=== PATIENT | female | born 1970 | race Caucasian/White ===

== ENCOUNTER 2016-07-08 11:40 | Emergency (ER) | payer MEDICAID ==
[2016-07-08] MEDS ORDERED: NS 1,000 ML IV ONE (11:49)
[2016-07-08] MEDS ORDERED: ONDANSETRON 4 MG/2 ML VIAL IVP ONE (11:49)
[2016-07-08 11:53] LABS: % IMMATURE GRANULYOCYTES 0.6 % (0.0-1.1); ABSOLUTE IMMATURE GRANULOCYTES 0.05 10^3/uL (0.00-0.10); ADD DIFF? NO; ADD MORPH? NO; ADD SCAN? NO; ATYPICAL LYMPHOCYTE FLAG 0 (0-99); FRAGMENT RBC FLAG 0 (0-99); HEMATOCRIT 42.8 % (38.0-47.0); HEMOGLOBIN 14.7 g/dL (12.6-16.3); LEFT SHIFT FLG 10 (0-99); LIPEMIA HEMOLYSIS FLAG 90 (0-99); MEAN CELL HEMOGLOBIN 30.4 pg (27.9-34.1); MEAN CELL HEMOGLOBIN CONCENTR. 34.3 g/dL (32.4-36.7); MEAN CELL VOLUME 88.4 fL (81.5-99.8); MEAN PLATELET VOLUME 9.6 fL (8.7-11.7); PLATELET CLUMPS FLAG 20 (0-99); PLATELET COUNT 313 10^3/uL (150-400); RED BLOOD CELL COUNT 4.84 10^6/uL (4.18-5.33); RED CELL DISTRIBUTION WIDTH 12.7 % (11.5-15.2)
--- NOTE | 2016-07-08 12:12 | EDPHY ---
H & P Stated Complaint: dehydration secondary to ETOH mannie, N/V/D HPI/ROS: Chief complaint: Alcohol use, nausea, vomiting and diarrhea History of present illness: This is a 45-year-old female with a history of alcoholism who presents to the emergency department feeling unwell describing nausea, vomiting and diarrhea. Patient reports she has been sober for the last 6 months. Yesterday she started drinking again has been binge drinking since then. Her last drink was earlier today. She developed associated nausea, vomiting and diarrhea described as nonbloody. She has had some abdominal discomfort. She feels dehydrated. She denies other associated signs or symptoms fevers no other pain, no history of trauma. Review of systems: A 10 point review of systems was obtained and other than described above was negative - Personal History LMP (Females 10-55): Now Current Tetanus Diphtheria and Acellular Pertussis (TDAP): Unsure - Medical/Surgical History Hx Asthma: No Hx Chronic Respiratory Disease: No Hx Diabetes: No Hx Cardiac Disease: No Hx Renal Disease: No Hx Cirrhosis: No Hx Alcoholism: Yes Hx HIV/AIDS: No Hx Splenectomy or Spleen Trauma: No Other PMH: ENDOMETRIOSIS, breast CA/ETOH, bipolar - Social History Smoking Status: Current every day smoker - Physical Exam Exam: General Appearance: Alert, nontoxic. Eyes: Pupils equal and round no pallor or injection. ENT, Mouth: Mucous membranes moist. Respiratory: There are no retractions, lungs are clear to auscultation. Cardiovascular: Regular rate and rhythm. Gastrointestinal: Abdomen is soft and nontender, no masses, bowel sounds normal. Neurological: Alert and oriented. Strength and sensation intact and symmetrical. Skin: Warm and dry, no rashes. Musculoskeletal: Neck is supple nontender. Extremities are symmetrical, full range of motion. Psychiatric: Patient is oriented X 3, there is no agitation. Constitutional: Initial Vital Signs Temperature (C) 36.8 C 07/08/16 11:45 Heart Rate 71 07/08/16 11:45 Respiratory Rate 16 07/08/16 11:45 Blood Pressure 107/56 L 07/08/16 11:45 O2 Sat (%) 96 07/08/16 11:45 O2 Delivery Mode Room Air Allergies/Adverse Reactions: No Known Allergies Allergy (Verified 10/31/15 11:02) Home Medications: Medication Instructions Recorded LaMICtal 03/17/15 traMADol 07/08/16 Medical Decision Making ED Course/Re-evaluation: Patient is seen under the supervision of my secondary supervising physician Dr. Bernabe Fulton. Patient presents to the emergency department reporting she has been drinking for the last day now with nausea, vomiting and diarrhea with associated abdominal discomfort. On presentation patient is nontoxic. Vital signs are stable. Physical exam is unremarkable, she is alert, appropriately interactive with me and has a nonfocal neurologic exam. Baseline blood studies are unremarkable. She is IV hydrated and treated with Zofran. She states she is feeling much better. She is clinically sober. She is discharged. Patient is asked to follow up with a primary care doctor for recheck. Return precautions are given. Patient voiced understanding and agreement with plan. Differential Diagnosis: Included but not limited to alcohol intoxication, alcohol withdrawal, gastritis , biliary tract disease, pancreatitis, colitis, an associated complications - Data Points Laboratory Results: Laboratory Results 07/08/16 11:45 07/08/16 11:45 07/08/16 07/08/16 07/08/16 11:45 11:45 11:45 WBC 8.07 10^3/uL 10^3/uL (3.80-9.50) RBC 4.84 10^6/uL 10^6/uL (4.18-5.33) Hgb 14.7 g/dL g/dL (12.6-16.3) Hct 42.8 % % (38.0-47.0) MCV 88.4 fL fL (81.5-99.8) MCH 30.4 pg pg (27.9-34.1) MCHC 34.3 g/dL g/dL (32.4-36.7) RDW 12.7 % % (11.5-15.2) Plt Count 313 10^3/uL 10^3/uL (150-400) MPV 9.6 fL fL (8.7-11.7) Neut % (Auto) 82.0 % H % (39.3-74.2) Lymph % (Auto) 14.1 % L % (15.0-45.0) [place] % (Auto) 2.5 % L % (4.5-13.0) Eos % (Auto) 0.1 % L % (0.6-7.6) Baso % (Auto) 0.7 % % (0.3-1.7) Nucleat RBC Rel Count 0.0 % % (0.0-0.2) Absolute Neuts (auto) 6.61 10^3/uL H 10^3/uL (1.70-6.50) Absolute Lymphs (auto) 1.14 10^3/uL 10^3/uL (1.00-3.00) Absolute Monos (auto) 0.20 10^3/uL L 10^3/uL (0.30-0.80) Absolute Eos (auto) 0.01 10^3/uL L 10^3/uL (0.03-0.40) Absolute Basos (auto) 0.06 10^3/uL 10^3/uL (0.02-0.10) Absolute Nucleated RBC 0.00 10^3/uL 10^3/uL (0-0.01) Immature Gran % 0.6 % % (0.0-1.1) Immature Gran # 0.05 10^3/uL 10^3/uL (0.00-0.10) Sodium 141 mEq/L mEq/L (134-144) Potassium 3.8 mEq/L mEq/L (3.5-5.2) Chloride 102 mEq/L mEq/L (97-110) Carbon Dioxide 20 mEq/l L mEq/l (22-31) Anion Gap 19 mEq/L H mEq/L (8-16) BUN 18 mg/dL mg/dL (7-23) Creatinine 0.8 mg/dL mg/dL (0.6-1.0) Estimated GFR > 60 Glucose 89 mg/dL mg/dL (70-100) Calcium 9.5 mg/dL mg/dL (8.5-10.4) Total Bilirubin 0.9 mg/dL mg/dL (0.1-1.4) Conjugated Bilirubin 0.4 mg/dL mg/dL (0.0-0.5) Unconjugated Bilirubin 0.5 mg/dL mg/dL (0.0-1.1) AST 41 IU/L IU/L (14-46) ALT 37 IU/L IU/L (9-52) Alkaline Phosphatase 60 IU/L IU/L (38-126) Total Protein 7.3 g/dL g/dL (6.3-8.2) Albumin 5.2 g/dL H g/dL (3.5-5.0) Lipase 64.0 IU/L IU/L (23-300) Beta HCG, Qual NEGATIVE Medications Given: Discontinued Medications Sodium Chloride (Ns) 1,000 mls @ 0 mls/hr IV ONCE ONE PRN Reason: Wide Open Stop: 07/08/16 11:50 Last Admin: 07/08/16 11:53 Dose: 1,000 mls Ondansetron HCl (Zofran) 4 mg IVP EDNOW ONE Stop: 07/08/16 11:50 Last Admin: 07/08/16 11:53 Dose: 4 mg Departure - Departure Disposition: Home, Routine, Self-Care Clinical Impression: Vomiting and diarrhea Alcohol dependence Qualifiers: Substance use status: uncomplicated Qualified Code(s): F10.20 - Alcohol dependence, uncomplicated Condition: Good Instructions: Alcohol Intoxication (ED) Additional Instructions: Follow-up with a primary care doctor for recheck If symptoms worsen or new symptoms develop return to the emergency room for recheck Referrals: Patient,NotPresent [Unknown] - As per Instructions [facility],. [Clinic] - As per Instructions
[2016-07-08 12:29] LABS: ALANINE AMINOTRANSFERASE 37 IU/L (9-52); ALBUMIN 5.2 g/dL (3.5-5.0); ALKALINE PHOSPHATASE 60 IU/L (38-126); ANION GAP 19 mEq/L (8-16); ASPARTATE AMINOTRANSFERASE 41 IU/L (14-46); BILIRUBIN,TOTAL 0.9 mg/dL (0.1-1.4); BILIRUBIN-CONJUGATED 0.4 mg/dL (0.0-0.5); BILIRUBIN-UNCONJUGATED 0.5 mg/dL (0.0-1.1); CALCIUM 9.5 mg/dL (8.5-10.4); CARBON DIOXIDE 20 mEq/l (22-31); CHLORIDE 102 mEq/L (97-110); CREATININE 0.8 mg/dL (0.6-1.0); GLOMERULAR FILTRATION RATE > 60; GLUCOSE 89 mg/dL (70-100); POTASSIUM 3.8 mEq/L (3.5-5.2); SODIUM 141 mEq/L (134-144); TOTAL PROTEIN 7.3 g/dL (6.3-8.2)
[2016-07-08 13:02] VITALS: BP 104/60; PULSE 79; RESP 15; TEMP 98.8; O2SAT 95
== END 2016-07-08 13:01 | disposition home or self-care (01) ==
LOC: EDUNIT#
DX: F10.20 Alcohol dependence, uncomplicated (principal); R11.10 Vomiting, unspecified; R19.7 Diarrhea, unspecified; F17.200 Nicotine dependence, unspecified, uncomplicated; Z85.3 Personal history of malignant neoplasm of breast
CPT/HCPCS: 96374; J2405

== ENCOUNTER 2016-07-16 18:28 | Emergency (ER) | payer MEDICAID ==
[2016-07-16 18:35] VITALS: RESP 16; TEMP 97.9
--- NOTE | 2016-07-16 18:44 | EDPHY ---
H & P Stated Complaint: DRINKING FOR ONE WEEK, ALCOHOLIC Time Seen by Provider: 07/16/16 18:37 HPI/ROS: CHIEF COMPLAINT: Requesting assistance from alcohol usage HISTORY OF PRESENT ILLNESS: 45-year-old female arrives via private vehicle, brought in by 3 friends who are in a sobriety program. History obtained primarily from friends as patient is altered. They state that the patient has been drinking heavily for the past 8 days and contacted 1 of them earlier requesting help from alcohol. No suicidal or homicidal ideation. REVIEW OF SYSTEMS: A ten point review of systems was performed and is negative with the exception of the items mentioned in the HPI PAST MEDICAL & SURGICAL HISTORY: Bipolar disorder. Alcoholism. SOCIAL HISTORY: last drink of alcohol earlier today FAMILY HISTORY: No pertinent family history PHYSICAL EXAM (Prior to examination, patient consented to physical exam, hands were washed and my usual and customary physical exam procedures followed) 1) GENERAL: thin, slurring speech 2) HEAD: Normocephalic, atraumatic 3) HEENT: Pupils equal, round, reactive to light bilaterally. Sclera anicteric. 4) NECK: Full range of motion, no meningeal signs. 5) LUNGS: Clear auscultation bilaterally, no wheezes, no rhonchi, no retractions. 6) HEART: Regular rate and rhythm, no murmur, no heave, no gallop. 7) ABDOMEN: No guarding, no rebound, no focal tenderness, 8) MUSCULOSKELETAL: . No peripheral edema or discoloration.] 9) BACK: no visual or palpable abnormality.] 10) SKIN: No rash, no petechiae. 11) Psychiatric: Patient is oriented X 3, there is no agitation. DIFFERENTIAL DIAGNOSIS: in no particular include but limited to acute alcohol intoxication, hepatic encephalopathy, polysubstance abuse - Personal History LMP (Females 10-55): 15-21 Days Ago Current Tetanus Diphtheria and Acellular Pertussis (TDAP): Unsure - Medical/Surgical History Hx Asthma: No Hx Chronic Respiratory Disease: No Hx Diabetes: No Hx Cardiac Disease: No Hx Renal Disease: No Hx Cirrhosis: No Hx Alcoholism: Yes Hx HIV/AIDS: No Hx Splenectomy or Spleen Trauma: No Other PMH: ENDOMETRIOSIS, breast CA/ETOH, bipolar - Social History Smoking Status: Current every day smoker Constitutional: Initial Vital Signs Temperature (C) 36.6 C 07/16/16 18:30 Heart Rate 102 H 07/16/16 18:30 Respiratory Rate 16 07/16/16 18:30 Blood Pressure 117/87 H 07/16/16 18:30 O2 Sat (%) 91 L 07/16/16 18:30 O2 Delivery Mode Room Air O2 (L/minute) 2 Allergies/Adverse Reactions: No Known Allergies Allergy (Verified 07/16/16 18:35) Home Medications: Medication Instructions Recorded Not Taking Meds 07/16/16 Medical Decision Making ED Course/Re-evaluation: Patient re-evaluated with serial exams. She is progressively more sober. She is ambulating without assistance.Her alcohol level of 368 was returned at 8:49 p.m. due to prior issues with initial blood sample. Doubt hepatic encephalopathy. She denies suicidal or homicidal ideation. She is here with her sober friends. We [facility] which the patient Initially is agreeable with. Her friend offered to take her to the [facility]. After period of time in the emergency department she became progressively more sober and is clinically sober. Offered to send her to the [facility] however she adamantly declines this. Informed the patient of the risks of acute alcohol withdrawal including but not limited to seizure, , permanent disability. She continues to decline stating that she will go home and " manage this myself". she took a taxi home. She is discharged with out Librium or benzodiazepine. - Data Points Laboratory Results: Laboratory Results 07/16/16 19:05 07/16/16 20:00 07/16/16 07/16/16 07/16/16 20:00 20:00 19:05 WBC RBC Hgb Hct MCV MCH MCHC RDW Plt Count MPV Neut % (Auto) Lymph % (Auto) [place] % (Auto) Eos % (Auto) Baso % (Auto) Nucleat RBC Rel Count Absolute Neuts (auto) Absolute Lymphs (auto) Absolute Monos (auto) Absolute Eos (auto) Absolute Basos (auto) Absolute Nucleated RBC Immature Gran % Immature Gran # Sodium 139 mEq/L mEq/L (134-144) Potassium 4.6 mEq/L mEq/L (3.5-5.2) Chloride 99 mEq/L mEq/L (97-110) Carbon Dioxide 25 mEq/l mEq/l (22-31) Anion Gap 15 mEq/L mEq/L (8-16) BUN 10 mg/dL mg/dL (7-23) Creatinine 0.6 mg/dL mg/dL (0.6-1.0) Estimated GFR > 60 Glucose 81 mg/dL mg/dL (70-100) Calcium 8.0 mg/dL L mg/dL (8.5-10.4) Total Bilirubin Conjugated Bilirubin Unconjugated Bilirubin AST ALT Alkaline Phosphatase Ammonia < 9.0 uMOL/L L uMOL/L (9.0-30.0) Total Protein Albumin Ethyl Alcohol 368 mg/dL H mg/dL (0-10) 07/16/16 07/16/16 19:05 19:05 WBC 6.88 10^3/uL 10^3/uL (3.80-9.50) RBC 5.78 10^6/uL H 10^6/uL (4.18-5.33) Hgb 17.6 g/dL H g/dL (12.6-16.3) Hct 51.2 % H % (38.0-47.0) MCV 88.6 fL fL (81.5-99.8) MCH 30.4 pg pg (27.9-34.1) MCHC 34.4 g/dL g/dL (32.4-36.7) RDW 13.0 % % (11.5-15.2) Plt Count 312 10^3/uL 10^3/uL (150-400) MPV 9.0 fL fL (8.7-11.7) Neut % (Auto) 66.2 % % (39.3-74.2) Lymph % (Auto) 29.7 % % (15.0-45.0) [place] % (Auto) 2.6 % L % (4.5-13.0) Eos % (Auto) 0.4 % L % (0.6-7.6) Baso % (Auto) 0.7 % % (0.3-1.7) Nucleat RBC Rel Count 0.0 % % (0.0-0.2) Absolute Neuts (auto) 4.55 10^3/uL 10^3/uL (1.70-6.50) Absolute Lymphs (auto) 2.04 10^3/uL 10^3/uL (1.00-3.00) Absolute Monos (auto) 0.18 10^3/uL L 10^3/uL (0.30-0.80) Absolute Eos (auto) 0.03 10^3/uL 10^3/uL (0.03-0.40) Absolute Basos (auto) 0.05 10^3/uL 10^3/uL (0.02-0.10) Absolute Nucleated RBC 0.00 10^3/uL 10^3/uL (0-0.01) Immature Gran % 0.4 % % (0.0-1.1) Immature Gran # 0.03 10^3/uL 10^3/uL (0.00-0.10) Sodium REJ Potassium Not Reported Chloride Not Reported Carbon Dioxide Not Reported Anion Gap Not Reported BUN Not Reported Creatinine Not Reported Estimated GFR Not Reported Glucose Not Reported Calcium Not Reported Total Bilirubin Not Reported Conjugated Bilirubin Not Reported Unconjugated Bilirubin Not Reported AST Not Reported ALT Not Reported Alkaline Phosphatase Not Reported Ammonia Total Protein Not Reported Albumin Not Reported Ethyl Alcohol REJ Medications Given: Discontinued Medications Chlordiazepoxide (Librium 25 Mg Prepack#6) 1 btl TAKEHOME EDNOW ONE Stop: 07/16/16 20:51 Last Admin: 07/16/16 23:58 Dose: Not Given Sodium Chloride (Ns) 1,000 mls @ 0 mls/hr IV ONCE ONE PRN Reason: Wide Open Stop: 07/16/16 21:14 Last Admin: 07/16/16 21:14 Dose: 1,000 mls Lorazepam (Ativan Injection) 1 mg IVP EDNOW ONE Stop: 07/16/16 22:05 Last Admin: 07/16/16 22:10 Dose: 1 mg Ondansetron HCl (Zofran) 4 mg IVP EDNOW ONE Stop: 07/16/16 19:50 Last Admin: 07/16/16 19:40 Dose: 4 mg Ondansetron HCl (Zofran) 4 mg IVP EDNOW ONE Stop: 07/16/16 22:05 Last Admin: 07/16/16 22:10 Dose: 4 mg Departure - Departure Disposition: Home, Routine, Self-Care Clinical Impression: Acute alcohol intoxication Qualifiers: Complication of substance-induced condition: uncomplicated Qualified Code(s): F10.120 - Alcohol abuse with intoxication, uncomplicated Condition: Good Instructions: Alcohol Intoxication (ED) Referrals: [facility] [Outside] - 1 day without fail
[2016-07-16 19:19] LABS: % IMMATURE GRANULYOCYTES 0.4 % (0.0-1.1); ABSOLUTE IMMATURE GRANULOCYTES 0.03 10^3/uL (0.00-0.10); ADD DIFF? NO; ADD MORPH? NO; ADD SCAN? NO; ATYPICAL LYMPHOCYTE FLAG 0 (0-99); FRAGMENT RBC FLAG 0 (0-99); HEMATOCRIT 51.2 % (38.0-47.0); HEMOGLOBIN 17.6 g/dL (12.6-16.3); LEFT SHIFT FLG 0 (0-99); LIPEMIA HEMOLYSIS FLAG 90 (0-99); MEAN CELL HEMOGLOBIN 30.4 pg (27.9-34.1); MEAN CELL HEMOGLOBIN CONCENTR. 34.4 g/dL (32.4-36.7); MEAN CELL VOLUME 88.6 fL (81.5-99.8); PLATELET CLUMPS FLAG 10 (0-99); PLATELET COUNT 312 10^3/uL (150-400); RED BLOOD CELL COUNT 5.78 10^6/uL (4.18-5.33)
[2016-07-16] MEDS ORDERED: ONDANSETRON 4 MG/2 ML VIAL ONE (19:36)
[2016-07-16] MEDS ORDERED: ONDANSETRON 4 MG/2 ML VIAL IVP ONE ×2 (19:49→22:04)
[2016-07-16 20:12] LABS: ANION GAP 15 mEq/L (8-16); CARBON DIOXIDE 25 mEq/l (22-31); CHLORIDE 99 mEq/L (97-110); CREATININE 0.6 mg/dL (0.6-1.0); GLOMERULAR FILTRATION RATE > 60; GLUCOSE 81 mg/dL (70-100); POTASSIUM 4.6 mEq/L (3.5-5.2); SODIUM 139 mEq/L (134-144)
[2016-07-16 20:45] LABS: ETHANOL SERUM 368 mg/dL (0-10)
[2016-07-16] MEDS ORDERED: CHLORDIAZEPOXIDE 25MG PREPK#6 BTL TAKEHOME ONE (20:50)
[2016-07-16] MEDS ORDERED: NS 1,000 ML IV ONE (21:13)
[2016-07-16] MEDS ORDERED: LORazepam 2 MG/ML INJ IVP ONE (22:04)
[2016-07-17] VITALS: BP 104/61; PULSE 87; O2SAT 94
== END 2016-07-16 23:59 | disposition home or self-care (01) ==
DX: F10.120 Alcohol abuse with intoxication, uncomplicated (principal); F17.200 Nicotine dependence, unspecified, uncomplicated; Z85.3 Personal history of malignant neoplasm of breast
CPT/HCPCS: G0480; J2060; J2405

== ENCOUNTER 2016-09-07 19:38 | Emergency (ER) | payer MEDICAID ==
[2016-09-07 19:54] VITALS: O2SAT 97
[2016-09-07] MEDS ORDERED: chlordiazePOXIDE 25 MG CAP PO ONE (21:26)
[2016-09-07 21:48] LABS: % IMMATURE GRANULYOCYTES 0.2 % (0.0-1.1); ABSOLUTE IMMATURE GRANULOCYTES 0.01 10^3/uL (0.00-0.10); ADD DIFF? NO; ADD MORPH? NO; ADD SCAN? NO; ATYPICAL LYMPHOCYTE FLAG 0 (0-99); FRAGMENT RBC FLAG 0 (0-99); HEMATOCRIT 37.5 % (38.0-47.0); LEFT SHIFT FLG 0 (0-99); LIPEMIA HEMOLYSIS FLAG 90 (0-99); MEAN CELL HEMOGLOBIN 31.2 pg (27.9-34.1); MEAN CELL HEMOGLOBIN CONCENTR. 34.7 g/dL (32.4-36.7); MEAN CELL VOLUME 89.9 fL (81.5-99.8); MEAN PLATELET VOLUME 9.1 fL (8.7-11.7); PLATELET CLUMPS FLAG 0 (0-99); PLATELET COUNT 192 10^3/uL (150-400); RED BLOOD CELL COUNT 4.17 10^6/uL (4.18-5.33); RED CELL DISTRIBUTION WIDTH 12.9 % (11.5-15.2)
[2016-09-07 22:01] LABS: ALANINE AMINOTRANSFERASE 85 IU/L (9-52); ALBUMIN 4.3 g/dL (3.5-5.0); ALKALINE PHOSPHATASE 57 IU/L (38-126); ANION GAP 13 mEq/L (8-16); ASPARTATE AMINOTRANSFERASE 52 IU/L (14-46); BILIRUBIN,TOTAL 0.6 mg/dL (0.1-1.4); BILIRUBIN-CONJUGATED 0.3 mg/dL (0.0-0.5); BILIRUBIN-UNCONJUGATED 0.3 mg/dL (0.0-1.1); CALCIUM 9.9 mg/dL (8.5-10.4); CARBON DIOXIDE 29 mEq/l (22-31); CHLORIDE 96 mEq/L (97-110); CREATININE 0.6 mg/dL (0.6-1.0); ETHANOL SERUM < 10 mg/dL (0-10); GLOMERULAR FILTRATION RATE > 60; GLUCOSE 85 mg/dL (70-100); POTASSIUM 3.9 mEq/L (3.5-5.2); SODIUM 138 mEq/L (134-144); TOTAL PROTEIN 6.8 g/dL (6.3-8.2)
--- NOTE | 2016-09-07 22:06 | EDPHY ---
H & P Stated Complaint: says she's an alcoholic,recent sobriety, started drinking 7.8- cant stop - Medical/Surgical History Hx Asthma: No Hx Chronic Respiratory Disease: No Hx Diabetes: No Hx Cardiac Disease: No Hx Renal Disease: No Hx Cirrhosis: No Hx Alcoholism: Yes Hx HIV/AIDS: No Hx Splenectomy or Spleen Trauma: No Other PMH: ENDOMETRIOSIS, breast CA/ETOH, bipolar, L breast lumpectomy, endometrial surg - Social History Smoking Status: Current every day smoker Time Seen by Provider: 09/07/16 21:17 HPI/ROS: Chief complaint: Alcohol withdrawal History of present illness: This is a 45-year-old female who presents to the emergency department for alcohol withdrawal. Patient reports a history of alcohol abuse. She reports she has been drinking heavily for the last week. Her last drink was a few hours prior to arrival. She states she is feeling unwell. She would like treatment for her withdrawal. She would like to get back into alcoholic anonymous. She reports she is feeling unwell describing malaise as well as nausea. Review of systems: A 10 point review of systems was obtained and other than described above was negative (Holden Reno) - Physical Exam Exam: General Appearance: Alert, nontoxic. Eyes: Pupils equal and round no pallor or injection. ENT, Mouth: Mucous membranes moist. Respiratory: There are no retractions, lungs are clear to auscultation. Cardiovascular: Regular rate and rhythm. Gastrointestinal: Abdomen is soft and nontender, no masses, bowel sounds normal. Neurological: Alert and oriented x4. Cranial nerves 2-12 grossly intact. Strength and sensation intact and symmetrical. No meningismus. No tremulousness. Skin: Warm and dry, no rashes. Musculoskeletal: Neck is supple nontender. Extremities are symmetrical, full range of motion. Psychiatric: Patient is oriented X 3, there is no agitation. (Holden Reno) Constitutional: Initial Vital Signs Temperature (C) 37 C 09/07/16 19:45 Heart Rate 96 09/07/16 19:45 Respiratory Rate 18 09/07/16 19:45 Blood Pressure 110/79 09/07/16 19:45 O2 Sat (%) 97 09/07/16 19:45 O2 Delivery Mode Room Air Allergies/Adverse Reactions: No Known Allergies Allergy (Verified 09/07/16 19:50) Home Medications: Medication Instructions Recorded Vivitrol 09/07/16 traZODone 09/07/16 Medical Decision Making ED Course/Re-evaluation: Patient is seen under the supervision of my secondary supervising physician Dr. Maria Elena Toribio. Patient presents to the emergency department concerned she is going through alcohol withdrawal. On presentation she is nontoxic. Vital signs are stable. Physical exam is benign. Blood studies largely unremarkable except for slight elevation of LFTs likely from recent alcohol use. Alcohol level here is 0. She has been IV hydrated and given a dose of Librium. I do not appreciate evidence of severe withdrawal. She has been seen previously for alcohol related issues. I do believe she is appropriate for outpatient management. She is discharged home. Home care is discussed. I have encouraged her to seek therapy for her alcoholism. Return precautions are given. (Holden Reno) The patient was evaluated and managed by the physician ophthalmic medical assistant. I have reviewed this chart and I agree with the findings and plan of care as documented , as indicated by my signature. I am the secondary supervising physician. ( Maria Elena Toribio) Differential Diagnosis: Included but not limited to alcohol intoxication, alcohol withdrawal, substance abuse (Holden Reno) - Data Points Laboratory Results: Laboratory Results 09/07/16 21:40 09/07/16 21:40 Medications Given: Discontinued Medications Chlordiazepoxide HCl (Librium) 25 mg PO EDNOW ONE Stop: 09/07/16 21:27 Last Admin: 09/07/16 21:43 Dose: 25 mg Departure - Departure Disposition: Home, Routine, Self-Care Clinical Impression: Alcohol withdrawal Condition: Good Instructions: Alcohol Withdrawal (ED) Additional Instructions: Follow-up with a primary care doctor for recheck If symptoms worsen or new symptoms develop return to the emergency room for recheck Referrals: Lisa Scott PA [Primary Care Provider] - As per Instructions
[2016-09-08 00:45] VITALS: BP 121/71; PULSE 63; RESP 16; TEMP 98.1
== END 2016-09-07 22:29 | disposition home or self-care (01) ==
DX: F10.230 Alcohol dependence with withdrawal, uncomplicated (principal); F17.200 Nicotine dependence, unspecified, uncomplicated; Z85.3 Personal history of malignant neoplasm of breast
CPT/HCPCS: G0480

== ENCOUNTER 2018-03-07 18:05 | Emergency (ER) | payer MEDICAID ==
[2018-03-07] MEDS ORDERED: HALOPERIDOL LACT 5 MG/ML INJ IM ONE ×2 (18:10→18:11)
[2018-03-07] MEDS ORDERED: LORazepam 2 MG/ML INJ IM ONE ×2 (18:10)
[2018-03-07] MEDS ORDERED: HALOPERIDOL LACT 5 MG/ML INJ ONE (18:11)
--- NOTE | 2018-03-07 18:13 | EDPHY ---
H & P Source: RN/MD, EMS, Other Exam Limitations: Clinical condition - Medical/Surgical History Hx Asthma: No Hx Chronic Respiratory Disease: No Hx Diabetes: No Hx Cardiac Disease: No Hx Renal Disease: No Hx Cirrhosis: No Hx Alcoholism: Yes Hx HIV/AIDS: No Hx Splenectomy or Spleen Trauma: No Other PMH: ENDOMETRIOSIS, breast CA/ETOH, bipolar, L breast lumpectomy, endometrial surg - Social History Smoking Status: Current every day smoker Time Seen by Provider: 03/07/18 18:11 HPI/ROS: HPI: This is a 47-year-old female who presents with Chief Complaint: Alcohol intoxication Location: psych Quality: Alcohol intoxication Duration: Unknown Signs and Symptoms: Limited as patient is intoxicated and uncooperative Timing: Acute Severity: Severe Context: Patient presents via EMS as they were called by a bystander who found the patient sleeping on the sidewalk with her dog nearby. Patient was intoxicated. Upon arrival, patient began to yell and become combative with EMS. They are able to redirect her with verbal communication in she went into the ambulance. Upon arrival to the ER, patient began yelling and screaming and trying to escape. Modifying Factors: None Comment: ROS: Limited due to intoxication MEDICAL/SURGICAL/SOCIAL HISTORY: Medical/surgical history: ENDOMETRIOSIS, breast CA/ETOH, bipolar, L breast lumpectomy, endometrial surg Social history: Alcohol use. Family history noncontributory. CONSTITUTIONAL: Belligerent, yelling and screaming, swinging at staff, intoxicated middle-aged female, awake and alert, no obvious distress HEENT: Atraumatic and normocephalic, PERRL, EOMI. Nares patent; no rhinorrhea; no nasal mucosal edema. Tympanic membranes clear. Oropharynx clear, no exudate and moist pink mucosa. Airway patent. No lymphadenopathy. No meningismus. Cardiovascular: Normal S1/S2, tachycardia, regular rhythm, without murmur rub or gallop. PULMONARY/CHEST: Symmetrical and nontender. Clear to auscultation bilaterally. Good air movement. No accessory muscle usage. ABDOMEN: Soft, nondistended, nontender, no rebound, no guarding, no peritoneal signs, no masses or organomegaly. No CVAT. EXTREMITIES: 2/2 pulses, strength 5/5, no deformities, no clubbing, no cyanosis or edema. NEUROLOGICAL: no focal neuro deficits. GCS 15. SKIN: Warm and dry, no erythema. no rash. Good capillary refill. (Scarlett López) Constitutional: Initial Vital Signs Temperature (C) 36.6 C 03/07/18 18:35 Heart Rate 100 03/07/18 18:35 Respiratory Rate 18 03/07/18 18:35 Blood Pressure 103/74 03/07/18 18:35 O2 Sat (%) 96 03/07/18 18:35 O2 Delivery Mode Room Air O2 (L/minute) 1 Allergies/Adverse Reactions: No Known Allergies Allergy (Verified 03/07/18 18:37) Home Medications: Medication Instructions Recorded Vivitrol 09/07/16 traZODone 09/07/16 Medical Decision Making ED Course/Re-evaluation: 1814: Placed on [facility] detainer. Patient is currently intoxicated and uncooperative with concern for patient safety and staff safety. IM Haldol 5 mg , IM Ativan 2 mg, and IM Benadryl 25 mg given. 1925: [id number]: Notified by RN that patient is starting to become more arousable and is calm and cooperative. Patient will need to be reassessed when she is more sober and likely be discharged to the [facility]. 0100: End of shift. Signed over to Dr. Cook pending re-evaluation once more sober and able to ambulate without ataxia. This patient was seen under the supervision of my secondary supervising physician. I evaluated care for this patient independently. Discussed this patient with Dr. Gamboa who did not see the patient. (Scarlett López) The patient was eventually able to ambulate without difficulty. She was able to arrange for sober friend to come and pick her up from the emergency department. She will be discharged. (Idania Cook) Differential Diagnosis: Altered mental status including but not limited to hypoglycemia, infectious process, electrolyte abnormality, head injury and intoxicants. (Scarlett López) Other Provider: The patient was evaluated and managed by the Physician Assembler Type Bar And Segment. My co- signature indicates that I have reviewed this chart and I agree with the findings and plan of care as documented. I am the secondary supervising physician. (Milvia Gamboa) - Data Points Laboratory Results: Laboratory Results 03/07/18 18:07 03/07/18 18:07 Medications Given: Discontinued Medications Diphenhydramine HCl (Benadryl Injection) 25 mg IM ONCE ONE Stop: 03/07/18 18:11 Last Admin: 03/07/18 18:13 Dose: Not Given Diphenhydramine HCl (Benadryl Injection) 25 mg IM ONCE ONE Stop: 03/07/18 18:11 Last Admin: 03/07/18 19:16 Dose: Not Given Diphenhydramine HCl (Benadryl Injection) 25 mg IVP EDNOW ONE Stop: 03/07/18 18:39 Last Admin: 03/07/18 18:40 Dose: 25 mg Haloperidol Lactate (Haldol Injection) 5 mg IM EDNOW ONE Stop: 03/07/18 18:12 Last Admin: 03/07/18 18:40 Dose: Not Given Haloperidol Lactate (Haldol Injection) 5 mg IM EDNOW ONE Stop: 03/07/18 18:11 Last Admin: 03/07/18 18:13 Dose: Not Given Haloperidol Lactate (Haldol Injection) 5 mg IVP EDNOW ONE Stop: 03/07/18 18:40 Last Admin: 03/07/18 18:40 Dose: 5 mg Lorazepam (Ativan Injection) 2 mg IM ONCE ONE Stop: 03/07/18 18:11 Last Admin: 03/07/18 18:13 Dose: Not Given Lorazepam (Ativan Injection) 2 mg IM EDNOW ONE Stop: 03/07/18 18:11 Last Admin: 03/07/18 19:17 Dose: Not Given Lorazepam (Ativan Injection) 2 mg IVP EDNOW ONE Stop: 03/07/18 18:39 Last Admin: 03/07/18 18:40 Dose: 2 mg Departure - Departure Disposition: Home, Routine, Self-Care Clinical Impression: Alcoholic intoxication without complication Condition: Good Instructions: Alcohol Intoxication (ED), Abuse of Alcohol (ED) Referrals: [facility] [Outside] - As per Instructions
[2018-03-07 18:28] LABS: PLATELET COUNT 211 10^3/uL (150-400)
[2018-03-07] MEDS ORDERED: LORazepam 2 MG/ML INJ IVP ONE (18:38)
[2018-03-07] MEDS ORDERED: HALOPERIDOL LACT 5 MG/ML INJ IVP ONE (18:39)
[2018-03-08 02:37] VITALS: BP 117/76
== END 2018-03-08 02:57 | disposition home or self-care (01) ==
LOC: EDUNIT#
DX: F10.129 Alcohol abuse with intoxication, unspecified (principal); F31.9 Bipolar disorder, unspecified; F17.200 Nicotine dependence, unspecified, uncomplicated
CPT/HCPCS: 96374; G0480; J1200; J1630; J2060

== ENCOUNTER 2018-03-10 00:09 | Emergency (ER) | payer MEDICAID ==
--- NOTE | 2018-03-10 01:26 | EDPHY ---
H & P Stated Complaint: ETOH ,,, [facility]C HOLD - Personal History Current Tetanus/Diphtheria Vaccine: Yes Current Tetanus Diphtheria and Acellular Pertussis (TDAP): Yes - Medical/Surgical History Hx Asthma: No Hx Chronic Respiratory Disease: No Hx Diabetes: No Hx Cardiac Disease: No Hx Renal Disease: No Hx Cirrhosis: No Hx Alcoholism: Yes Hx HIV/AIDS: No Hx Splenectomy or Spleen Trauma: No Other PMH: ENDOMETRIOSIS, breast CA/ETOH, bipolar, L breast lumpectomy, endometrial surg - Social History Smoking Status: Current every day smoker Time Seen by Provider: 03/10/18 01:16 HPI/ROS: Chief complaint: Alcohol intoxication History of present illness: This is a 47-year-old female brought to the emergency department by police on an [facility] hold for alcohol intoxication. Apparently the patient's roommate called the police as she appeared to be overly intoxicated. Patient did not appear to be able to care for herself and was brought here. On my evaluation she wakes up when I ask her to. She admits to drinking heavily this evening. She has done this before. She denies illness or injury. Review of systems: A 10 point review of systems was obtained and other than described above was negative (Holden [place]o) - Physical Exam Exam: General Appearance: Alert, nontoxic, strong odor of alcohol on breath.. Eyes: Pupils equal and round no injection. Respiratory: Chest is non tender, lungs are clear to auscultation. Cardiac: regular rate and rhythm Gastrointestinal: Abdomen is soft and non tender, no masses, bowel sounds normal. Musculoskeletal: Neck is supple and non tender. Extremities have full range of motion and are non tender. Skin: No rashes or lesions. Neurological:. Alert. Strength and sensation intact and symmetrical. (Holden Reno) Constitutional: Initial Vital Signs Temperature (C) 36.8 C 03/10/18 00:10 Heart Rate 115 H 03/10/18 00:10 Respiratory Rate 16 03/10/18 00:10 Blood Pressure 108/81 H 03/10/18 00:10 O2 Sat (%) 96 03/10/18 00:10 O2 Delivery Mode Room Air Allergies/Adverse Reactions: No Known Allergies Allergy (Verified 03/10/18 00:18) Home Medications: Medication Instructions Recorded Vivitrol 09/07/16 traZODone 07/13/17 Medical Decision Making ED Course/Re-evaluation: Patient seen under the supervision of my secondary supervising physician Dr. Idania Cook. Patient is brought to the emergency department on an [facility] hold, she was found intoxicated. On my evaluation she does wake up and answer questions. There is a strong odor of alcohol on her breath. She does admit to drinking heavily this evening. She denies illness or injury. She will need to sober up enough to be open to walk on her own and then she will go to the arc or home with a friend. (Holden Reno) PHYSICIAN DOCUMENTATION: The patient was evaluated and managed by the Physician Head Strength And Conditioning Coach. My co- signature indicates that I have reviewed this chart and I agree with the findings and plan of care as documented. I am the secondary supervising physician. The patient was eventually stable on her feet. She received a prescription for Librium and was [facility]. (Idania Cook) Differential Diagnosis: Included but not limited to alcohol intoxication, alcohol withdrawal, polysubstance abuse (Holden [place]) - Data Points Medications Given: Discontinued Medications Chlordiazepoxide (Librium 25 Mg Prepack#6) 1 btl TAKEHOME EDNOW ONE Stop: 03/10/18 03:32 Last Admin: 03/10/18 03:38 Dose: 1 btl Chlordiazepoxide HCl (Librium) 25 mg PO EDNOW ONE Stop: 03/10/18 03:32 Last Admin: 03/10/18 03:38 Dose: 25 mg Chlordiazepoxide HCl (Librium) 25 mg PO EDNOW ONE Stop: 03/10/18 03:38 Last Admin: 03/10/18 03:38 Dose: 25 mg Departure - Departure Disposition: Home, Routine, Self-Care Clinical Impression: Alcoholic intoxication Condition: Good Instructions: Alcohol Intoxication (ED) Additional Instructions: Follow-up with the primary care doctor for continued evaluation and care Drink plenty of fluids including water and electrolyte drinks and eat proper meals to help recover Avoid the use of alcohol in the future If symptoms worsen or new symptoms develop return to the emergency department for recheck Referrals: NONE *PRIMARY CARE P,. [Primary Care Provider] - As per Instructions [facility],. [Clinic] - As per Instructions
[2018-03-10] MEDS ORDERED: chlordiazePOXIDE 25 MG CAP PO ONE ×2 (03:31→03:37)
[2018-03-10] MEDS ORDERED: CHLORDIAZEPOXIDE 25MG PREPK#6 BTL TAKEHOME ONE (03:31)
[2018-03-10] MEDS ORDERED: chlordiazePOXIDE 25 MG CAP ONE (03:36)
[2018-03-10 04:43] VITALS: BP 117/80
== END 2018-03-10 04:41 | disposition home or self-care (01) ==
LOC: EDUNIT#
DX: F10.920 Alcohol use, unspecified with intoxication, uncomplicated (principal)